=== PATIENT | female | born 1955 | race African-American/Black ===

== ENCOUNTER 2022-01-06 19:26 | Inpatient (IN) ==
[2022-01-06] MEDS ORDERED: SODIUM CHLORIDE 0.9% 1,000 ML IV STA (20:09)
[2022-01-06] MEDS ORDERED: LIDOCAINE 1%/EPI INJ 20 ML VIAL MISC INJ STA (20:09)
[2022-01-06] MEDS ORDERED: ONDANSETRON 4 MG/2 ML VIAL IV STA (20:09)
[2022-01-06] MEDS ORDERED: HYDROmorphone 1 MG/1 ML SYRINGE IV STA (20:09)
[2022-01-06 21:24] LABS: Basophils % 0.3 % (0.0-0.8); Eosinophils % 0.1 % (0.00-10.9); Hematocrit 38.4 VOL% (35.7-47.0); Hemoglobin 11.7 GM/DL (12.0-16.0); Immature Granulocytes % 0.4 %; Immature Granulocytes Absolute 0.05 #; Mean Corpuscular HGB Conc 30.5 GM/DL (32-36); Mean Corpuscular Volume 81.9 FL (87-102); Mean Platelet Volume 9.4 FL (9.6-12.0); Monocytes # 0.8 10*3/uL (0.11-0.8); Monocytes % 6.7 % (1.7-12.7); Neutrophils % 75.5 % (38.7-73.9); Platelet Count 243 T/CUMM (130-400); Red Blood Count 4.69 MC/CUMM (3.8-5.5); Red Cell Distribution Width 15.9 % (9.3-17.3); White Blood Count 11.6 T/CUMM (4-12)
[2022-01-06 21:40] LABS: INR 0.9; PT Patient Result 10.3 SECS (10.5-12.0); Partial Thromboplastin Time 22.4 SECS (23.7-32.9)
[2022-01-06 21:44] LABS: Albumin 3.5 G/DL (3.4-5.0); Bilirubin,Total 0.4 MG/DL (0.20-1.00); Calcium 9.3 MG/DL (8.5-10.1); Osmolality,Calculated 280.3 MOS/KG (273-304); Potassium 3.5 MMOL/L (3.5-5.1); Total Protein 6.9 G/DL (6.4-8.2)
[2022-01-06] MEDS ORDERED: ZOLPIDEM 5 MG TABLET PO STA (21:58)
[2022-01-07] MEDS: ONDANSETRON 4 MG/2 ML VIAL IV PRN ×3 (00:20→16:41)
[2022-01-07] MEDS: HYDROmorphone 1 MG/1 ML SYRINGE IV PRN ×4 (00:22→22:33)
[2022-01-07] MEDS: DEXTROSE 5% NACL 0.45% 1,000 ML IV SCH ×6 (00:23→21:01)
[2022-01-07] MEDS: PANTOPRAZOLE 40 MG TABLET PO SCH (08:08)
[2022-01-07] MEDS ORDERED: propofoL 200 MG/20 ML VIAL IV ONE (10:15)
[2022-01-07] MEDS ORDERED: SEVOFLURANE 1 UNIT/15 MINUTE INH ONE (10:15)
[2022-01-07] MEDS ORDERED: MIDAZOLAM 2 MG/2 ML VIAL ONE (10:15)
[2022-01-07] MEDS ORDERED: DEXAMETHASONE 4 MG/1 ML VIAL ONE (10:15)
[2022-01-07] MEDS ORDERED: LIDOCAINE 2% 5 ML VIAL ONE (10:15)
[2022-01-07] MEDS ORDERED: DEXMEDETOMIDINE 200 MCG/2 ML VIAL ONE (10:15)
[2022-01-07] MEDS ORDERED: BUPIVACAINE MPF 0.5% 30 ML VIAL ONE (10:15)
[2022-01-07] MEDS ORDERED: fentaNYL 100 MCG/2 ML VIAL ONE (10:15)
[2022-01-07] MEDS ORDERED: ONDANSETRON 4 MG/2 ML VIAL ONE (10:15)
[2022-01-07] MEDS ORDERED: NEOSTIGMINE 10 MG/10 ML VIAL ONE (12:09)
[2022-01-07] MEDS ORDERED: GLYCOPYRROLATE 0.4 MG/2 ML VIAL ONE ×2 (12:09→12:50)
[2022-01-07 13:19] LABS: Mucus,Urine Occasional /LPF (Occasional); RBC,Urine 1 /HPF (0-4)
[2022-01-07 13:23] LABS: Bilirubin,Urine Negative (Negative); Blood, Urine Negative (Negative); Glucose,Urine (UA) Negative (Negative); Ketones,Urine Negative (Negative); Nitrite,Urine Negative (Negative); Protein,Urine Negative (Negative); Urine Appearance Clear (Clear); Urine Color Yellow (Yellow); Urine Urobilinogen 0.2 eU/dL (<2.0); Urine pH 5.5 (4.5-8.0)
[2022-01-08] MEDS: DEXTROSE 5% NACL 0.45% 1,000 ML IV SCH (06:09)
[2022-01-08] MEDS: PANTOPRAZOLE 40 MG TABLET PO SCH (08:39)
[2022-01-08] MEDS: ENOXAPARIN 30 MG/0.3 ML SYRINGE SUBCUT SCH ×2 (10:15→20:59)
[2022-01-08] MEDS: ONDANSETRON 4 MG/2 ML VIAL IV PRN (17:42)
[2022-01-09] MEDS ORDERED: ACETAMINOPHEN 325 MG TABLET PO PRN (00:12)
[2022-01-09] MEDS: ENOXAPARIN 30 MG/0.3 ML SYRINGE SUBCUT SCH ×2 (09:16→20:52)
[2022-01-09] MEDS: PANTOPRAZOLE 40 MG TABLET PO SCH (09:16)
[2022-01-09] MEDS ORDERED: TUBERCULIN SKIN TEST 0.1 ML SYRINGE INTRADERM ONE (09:30)
[2022-01-09] MEDS: ONDANSETRON 4 MG/2 ML VIAL IV PRN (09:38)
[2022-01-09 10:14] LABS: Basophils % 0.5 % (0.0-0.8); Eosinophils # 0.1 10*3/uL (0.0-0.87); Eosinophils % 1.2 % (0.00-10.9); Hematocrit 23.9 VOL% (35.7-47.0); Immature Granulocytes % 0.5 %; Immature Granulocytes Absolute 0.03 #; Lymphocytes # 1.8 10*3/uL (1.4-4.0); Lymphocytes % 28.4 % (21.3-54.2); Mean Corpuscular HGB Conc 31.8 GM/DL (32-36); Mean Corpuscular Volume 80.5 FL (87-102); Mean Platelet Volume 10.3 FL (9.6-12.0); Monocytes # 0.6 10*3/uL (0.11-0.8); Monocytes % 9.5 % (1.7-12.7); Neutrophils % 59.9 % (38.7-73.9); Red Cell Distribution Width 15.1 % (9.3-17.3)
[2022-01-09 10:20] LABS: Hemoglobin 7.6 GM/DL (12.0-16.0); Platelet Count 183 T/CUMM (130-400); Red Blood Count 2.97 MC/CUMM (3.8-5.5); White Blood Count 6.4 T/CUMM (4-12)
[2022-01-09 10:34] LABS: Albumin 2.6 G/DL (3.4-5.0); Bilirubin,Total 0.6 MG/DL (0.20-1.00); Calcium 8.7 MG/DL (8.5-10.1); Osmolality,Calculated 273.7 MOS/KG (273-304); Potassium 2.9 MMOL/L (3.5-5.1); Total Protein 5.8 G/DL (6.4-8.2)
[2022-01-09] MEDS ORDERED: CYCLOBENZAPRINE 10 MG TABLET PO PRN (10:40)
[2022-01-09] MEDS ORDERED: FUROSEMIDE 20 MG TABLET PO PRN (10:40)
[2022-01-09] MEDS ORDERED: POTASSIUM CHLORIDE 20 MEQ TABLET PO ONE (11:00)
[2022-01-09 11:33] LABS: Bacteria,Urine Occasional /HPF (Few); Bilirubin,Urine Negative (Negative); Glucose,Urine (UA) Negative (Negative); Ketones,Urine Trace mg/dL (Negative); Mucus,Urine Occasional /LPF (Occasional); Nitrite,Urine Negative (Negative); Protein,Urine Trace mg/dL (Negative); RBC,Urine 2 /HPF (0-4); Squamous Epithelial Cell,Urine Occasional /HPF (0-10); Urine Appearance Clear (Clear); Urine Color Yellow (Yellow)
[2022-01-09 11:34] LABS: Blood, Urine Negative (Negative)
[2022-01-09] MEDS: HYDROmorphone 1 MG/1 ML SYRINGE IV PRN (13:53)
[2022-01-09] MEDS: GABAPENTIN 400 MG CAPSULE PO SCH ×2 (15:25→20:50)
[2022-01-09] MEDS: lisinopriL 5 MG TABLET PO SCH (20:51)
[2022-01-10] MEDS ORDERED: SIMETHICONE CHEW 125 MG TABLET PO PRN (02:48)
[2022-01-10 05:26] LABS: Basophils % 0.2 % (0.0-0.8); Eosinophils # 0.2 10*3/uL (0.0-0.87); Eosinophils % 2.4 % (0.00-10.9); Hematocrit 20.6 VOL% (35.7-47.0); Immature Granulocytes % 0.3 %; Immature Granulocytes Absolute 0.02 #; Lymphocytes # 2.5 10*3/uL (1.4-4.0); Lymphocytes % 39.8 % (21.3-54.2); Mean Corpuscular HGB Conc 30.6 GM/DL (32-36); Mean Corpuscular Volume 81.4 FL (87-102); Mean Platelet Volume 11.1 FL (9.6-12.0); Monocytes # 0.9 10*3/uL (0.11-0.8); Monocytes % 13.7 % (1.7-12.7); Neutrophils % 43.6 % (38.7-73.9); Platelet Count 171 T/CUMM (130-400); Red Blood Count 2.53 MC/CUMM (3.8-5.5); Red Cell Distribution Width 15.1 % (9.3-17.3); White Blood Count 6.2 T/CUMM (4-12)
[2022-01-10 05:30] LABS: Hemoglobin 6.3 GM/DL (12.0-16.0)
[2022-01-10 05:50] LABS: Albumin 2.1 G/DL (3.4-5.0); Bilirubin,Total 0.5 MG/DL (0.20-1.00); Calcium 8.6 MG/DL (8.5-10.1); Osmolality,Calculated 280.1 MOS/KG (273-304); Potassium 3.4 MMOL/L (3.5-5.1); Total Protein 5.3 G/DL (6.4-8.2)
[2022-01-10] MEDS ORDERED: SODIUM CHLORIDE 0.9% 1,000 ML IV PRN ×2 (05:52→06:01)
[2022-01-10] MEDS: PANTOPRAZOLE 40 MG TABLET PO SCH (08:09)
[2022-01-10] MEDS: GABAPENTIN 400 MG CAPSULE PO SCH ×3 (08:09→20:50)
[2022-01-10] MEDS: ASPIRIN EC 81 MG TABLET PO SCH (08:10)
[2022-01-10] MEDS: POLYETHYLENE GLYCOL POWDER 17 GM PACK PO SCH (08:11)
[2022-01-10] MEDS: PARoxetine 20 MG TABLET PO SCH (09:04)
[2022-01-10] MEDS: LISINOPRIL/HCTZ 20-25 MG TABLET PO SCH (09:10)
[2022-01-10] MEDS: ENOXAPARIN 30 MG/0.3 ML SYRINGE SUBCUT SCH ×2 (09:11→20:50)
[2022-01-10 16:48] LABS: Hematocrit 26.9 VOL% (35.7-47.0); Hemoglobin 8.4 GM/DL (12.0-16.0)
[2022-01-10] MEDS: lisinopriL 5 MG TABLET PO SCH (20:50)
[2022-01-11] MEDS: POLYETHYLENE GLYCOL POWDER 17 GM PACK PO SCH (08:11)
[2022-01-11] MEDS: PARoxetine 20 MG TABLET PO SCH (08:12)
[2022-01-11] MEDS: ASPIRIN EC 81 MG TABLET PO SCH (08:13)
[2022-01-11] MEDS: PANTOPRAZOLE 40 MG TABLET PO SCH (08:13)
[2022-01-11] MEDS: GABAPENTIN 400 MG CAPSULE PO SCH (08:13)
[2022-01-11] MEDS: LISINOPRIL/HCTZ 20-25 MG TABLET PO SCH (08:13)
[2022-01-11] MEDS: ENOXAPARIN 30 MG/0.3 ML SYRINGE SUBCUT SCH (09:00)
[2022-01-11 12:36] VITALS: BP 100/51
== END 2022-01-11 15:02 | disposition home health service (06) | DRG 481 ==
LOC: EDBD → EDUNIT# → N.ED 19:26 → N.EDINP 21:56 → N.3E 22:56
PROVIDERS: ADMIT Surgery; ATTEND Surgery